=== PATIENT | female | born 1945 | race Caucasian/White ===

== ENCOUNTER → 2016-07-20 | Outpatient (CLI) | payer MEDICARE, BC ==
[~2016-07-20] MED LIST: ACETAMINOPHEN PO; ACETAMINOPHEN325 MG PO; FAMCICLOVIR125 MG PO; FLONASE 0.05% N16 G1; FLUOXETINE HCL20 M1 PO; GABAPENTIN100 M1 PO; IMODIUM2 MG PO; IRBESARTAN-HCT1 EACH PO; LEVAQUIN750 M1 PO; METOPROLOL PO; MYCOPHENOLATE500 MG PO; NORVASC PO; OMEPRAZOLE20 M1 PO; POTASSIUM CL ER PO; TENORMIN25 MG PO; TRIAMTERENE-HC1 EACH PO; ZOLOFT PO; ZYRTEC PO
== END | disposition home or self-care (01) ==
LOC: CECH 12:47
DX: I42.9 Cardiomyopathy, unspecified (principal); R07.89 Other chest pain; I34.0 Nonrheumatic mitral (valve) insufficiency; I36.1 Nonrheumatic tricuspid (valve) insufficiency
CPT/HCPCS: 93306

== ENCOUNTER → 2016-10-13 | Outpatient (CLI) | payer MEDICARE, BC ==
--- NOTE | ~2016-10-13 | US37 ---
[facility] A Service of [facility] & [facility] RADIOLOGY TEXT RESULTS PATIENT: ASHLEY OMALLEY LOCATION: CNIV : 49 UNIT #: [id number] AGE: [address]: Axel Rivas MD SEX: F ORDER DR: [id number] [facility] [address] [place], [place] [address] [id number] O MR#: [id number] Acc #: [id number] NAME: ASHLEY OMALLEY : 1945 SEX: F STUDY DATE/TIME: 10/13/2016 10:20 UNIT: CNIV ROOM: STUDY DESCRIPTION: US Carotid W/Doppler Bilateral Attending Physician: Axel Rivas M.D. Referring Physician: Axel Rivas M.D. Ordering Physician: Axel Rivas M.D. Primary Care Physician: Jose A Garza M.D. MEDICAL IMAGING REPORT This report is preliminary unless electronic signature is present EXAM Carotid duplex scan 10/13/2016 HISTORY Carotid stenosis. FINDINGS The right common carotid artery has a small amount of dense plaque. There is a large amount of dense irregular plaque in the right carotid bulb which extends up into the proximal internal and external carotid arteries. Peak systolic velocity in the mid-right internal carotid artery is 108 cm/sec with an end-diastolic velocity of 34 cm/sec. The ICA:CCA ratio on the right is 1.8. Peak systolic velocity in the right external carotid artery is 94 cm/sec. The right vertebral artery is patent with antegrade flow. Left common carotid artery has a large amount of dense irregular plaque. There is dense heterogeneous plaque in the left carotid bulb which extends up into the proximal internal and external carotid arteries. Peak systolic velocity in the distal left internal carotid artery is 107 cm/sec with end-diastolic velocity of 40 cm/sec. The ICA:CCA ratio on the left is 1.3. Peak systolic velocity in the left external carotid artery is 317 cm/sec. The left vertebral artery is patent with antegrade flow. IMPRESSION Plaque, but no significant stenosis (less than 50%) in the internal carotid arteries bilaterally. No significant stenosis of the right external carotid artery. Significant stenosis of the left external carotid artery. Patent vertebral arteries bilaterally with antegrade flow. [facility] A Service of [facility] & [facility] RADIOLOGY TEXT RESULTS PATIENT: ASHLEY OMALLEY LOCATION: CNIV : [birth year] UNIT #: [id number] AGE: [address]: Axel Rivas MD SEX: F ORDER DR: Dictated by... Jaden Hackett M.D. THIS IS AN ELECTRONICALLY VERIFIED REPORT Jaden Hackett M.D. at 10/14/2016 7:30 AM SBS/love TD: 10/13/2016 23:16 JOB #: [id number] MEDICAL IMAGING REPORT Page 1 of 1 COPY
== END | disposition home or self-care (01) ==
LOC: CNIV 09:58
DX: I65.23 Occlusion and stenosis of bilateral carotid arteries (principal); E78.5 Hyperlipidemia, unspecified; I10 Essential (primary) hypertension
CPT/HCPCS: 93880